=== PATIENT | male | born 1970 | race Caucasian/White ===

== ENCOUNTER 2018-12-20 15:54 | Emergency (ER) | payer BC, OTHER ==
[2018-12-20 16:52] LABS: Urine Blood TRACE (NEG); Urine Glucose NEGATIVE (NEG); Urine Protein TRACE (NEG); Urine pH 5.5 (5.0-7.0)
[2018-12-20 16:59] LABS: Absolute Lymphocytes (CBC) 0.8 K/uL (0.7-4.9); Basophils % 0.1 % (0-1.3); Eosinophils % 1.1 % (0-4.4); Hematocrit 47.3 % (39.6-49.0); Lymphocytes % 10.9 % (15.3-44.8); MPV 7.5 fL (7.6-11.3); Monocytes % 6.3 % (3.3-12.3); RBC Red Blood Cell Count 4.95 M/uL (4.33-5.43)
[2018-12-20 17:06] LABS: Albumin 3.9 g/dL (3.4-5.0); Bilirubin Direct 0.2 mg/dL (0-0.2); Bilirubin Total 0.8 mg/dL (0.2-1.0); Potassium 3.6 mmol/L (3.5-5.1)
[2018-12-20] MEDS ORDERED: NA CHLORIDE 0.9% 1,000 ML ONE (17:11)
--- NOTE | 2018-12-20 17:45 | RAD REPORT ---
EXAM DESCRIPTION: CT - Abdomen Pelvis Wo Contrast - 12/20/2018 5:16 pm CLINICAL HISTORY: Abdominal pain vomiting COMPARISON: None TECHNIQUE: Computed axial tomography of the abdomen and pelvis was obtained. IV and oral contrast we re not requested. All CT scans are performed using dose optimization technique as appropriate and may include automated exposure control or mA/KV adjustment according to patient size. FINDINGS: The evaluation of solid organs, vessels and bowel is limited secondary to the lack of con trast administration. The liver, spleen, pancreas, adrenals and right kidney appear grossly normal. A 2 millimeter nonobstructing left renal calculus The appendix is normal. There is no evidence of diverticulitis. Small inguinal hernias contain fat. Small umbilical hernia IMPRESSION: Small nonobstructing left renal calculus
--- NOTE | 2018-12-20 17:58 | EDPHYS ---
Physician Documentation [facility] Name: Kurtis Sanchez Age: 48 yrs Sex: Male : 1970 Arrival Date: 12/20/2018 Time: 15:56 Bed 23 Private MD: ED Physician Dusty Castro Historical: - Allergies: 12/20 16:03 No Known Allergies; hb - Home Meds: 16:03 multivitamin with minerals oral tab [Active]; hb - PMHx: 16:03 None; hb - PSHx: 16:03 Leg - Right; hb - Immunization history:: Adult Immunizations up to date. - Social history:: Smoking status: Patient/guardian denies using tobacco. - Ebola Screening: : No symptoms or risks identified at this time. Vital Signs: 16:02 BP 167 / 93; Pulse 82; Resp 16; Temp 98.4; Pulse Ox 100% on R/A; Weight 113.4 kg; hb Height 5 ft. 8 in. (172.72 cm); Pain 8/10; 17:44 BP 137 / 94; Pulse 63; Resp 18; Pulse Ox 97% on R/A; mg2 16:02 Body Mass Index 38.01 (113.40 kg, 172.72 cm) hb MDM: 16:36 Patient medically screened. gs 12/20 16:19 Order name: Basic Metabolic Panel; Complete Time: 17:14 mg2 12/20 16:19 Order name: CBC with Diff; Complete Time: 17:14 mg2 18 16:19 Order name: Creatinine for Radiology; Complete Time: 17:14 mg2 12/20 16:19 Order name: Hepatic Function; Complete Time: 17:14 mg2 18 16:19 Order name: Lipase; Complete Time: 17:14 mg2 12/20 16:31 Order name: Urine Dipstick--Ancillary (enter results); Complete Time: 17:14 eb 12/20 16:19 Order name: IV Saline Lock; Complete Time: 16:31 mg2 12/20 16:19 Order name: Labs collected and sent; Complete Time: 16:31 mg2 12/20 16:32 Order name: Urine Dipstick-Ancillary (obtain specimen); Complete Time: 16:32 mg2 12/20 16:53 Order name: CT Abd/Pelvis - Without Contrast; Complete Time: 17:53 gs Administered Medications: 16:58 Drug: NS 0.9% 1000 ml Route: IV; Rate: 1 bolus; Site: right antecubital; mg2 17:58 Follow up: Response: No adverse reaction; IV Status: Completed infusion; IV Intake: mg2 1000ml Disposition: 12/20/18 17:57 Discharged to Home. Impression: Lower abdominal pain, unspecified, Diarrhea, unspecified. - Condition is Stable. - Discharge Instructions: Abdominal Pain, Adult, Diarrhea, Adult, Nausea and Vomiting, Adult. - Prescriptions for Zofran 4 mg Oral Tablet - take 1 tablet by ORAL route every 12 hours As needed; 6 tablet. - Work release form, Medication Reconciliation Form, Thank You Letter, Antibiotic Education, Prescription Opioid Use form. - Follow up: Private Physician; When: 2 - 3 days; Reason: Re-evaluation by your physician. Follow up: Christos Gasca MD; When: 2 - 3 days; Reason: Re-evaluation by your physician. Signatures: Dispatcher [employer] EDMO Nakia Loco RN RN Dusty Castro MD MD Octavio Garcia RN RN mg2 Corrections: (The following items were deleted from the chart) 18:51 17:57 12/20/2018 17:57 Discharged to Home. Impression: Lower abdominal pain, mg2 unspecified; Diarrhea, unspecified. Condition is Stable. Forms are Medication Reconciliation Form, Thank You Letter, Antibiotic Education, Prescription Opioid Use. Follow up: Private Physician; When: 2 - 3 days; Reason: Re-evaluation by your physician. Follow up: Christos Gasca; When: 2 - 3 days; Reason: Re-evaluation by your physician.
--- NOTE | 2018-12-20 17:58 | ER ---
Nurse's Notes [facility] Name: Kurtis Sanchez Age: 48 yrs Sex: Male : 1970 Arrival Date: 12/20/2018 Time: 15:56 Bed 23 Private MD: Diagnosis: Lower abdominal pain, unspecified;Diarrhea, unspecified Presentation: 12/20 16:01 Presenting complaint: Upper abdominal pain x 2 weeks, N/V and dizziness 2 days. Denies hb fever. Transition of care: patient was not received from another setting of care. Onset of symptoms is unknown. Risk Assessment: Do you want to hurt yourself or someone else? Patient reports no desire to harm self or others. Care prior to arrival: None. 16:01 Method Of Arrival: Ambulatory hb 16:01 Acuity: JOHNNY 3 hb 16:35 Initial Sepsis Screen: Does the patient meet any 2 criteria? No. Patient's initial mg2 sepsis screen is negative. Does the patient have a suspected source of infection? No. Patient's initial sepsis screen is negative. Historical: - Allergies: 16:03 No Known Allergies; hb - Home Meds: 16:03 multivitamin with minerals oral tab [Active]; hb - PMHx: 16:03 None; hb - PSHx: 16:03 Leg - Right; hb - Immunization history:: Adult Immunizations up to date. - Social history:: Smoking status: Patient/guardian denies using tobacco. - Ebola Screening: : No symptoms or risks identified at this time. Screenin:35 Abuse screen: Denies threats or abuse. Denies injuries from another. Nutritional mg2 screening: No deficits noted. Tuberculosis screening: No symptoms or risk factors identified. Fall Risk IV access (20 points). Assessment: 16:33 General: Appears in no apparent distress. comfortable, Behavior is calm, cooperative. mg2 Pain: Complains of pain in abdomen Pain does not radiate. Pain currently is 7 out of 10 on a pain scale. Quality of pain is described as aching, Pain began gradually, Is intermittent. Neuro: Level of Consciousness is awake, alert, obeys commands, Oriented to person, place, time, situation. Cardiovascular: Capillary refill < 3 seconds Patient's skin is warm and dry. Respiratory: Airway is patent Respiratory effort is even, unlabored, Respiratory pattern is regular, symmetrical. GI: Bowel sounds present X 4 quads. Abd is soft Abdomen is tender to palpation. GI: Reports lower abdominal pain, upper abdominal pain, vomiting. : Urine is see urine dip. EENT: No signs and/or symptoms were reported regarding the EENT system. Derm: Skin is intact, is healthy with good turgor, Skin is pink, warm \T\ dry. normal. Musculoskeletal: Circulation, motion, and sensation intact. Capillary refill < 3 seconds. 18:23 Reassessment: patient up for discharge after completing iv fluid. mg2 Vital Signs: 16:02 BP 167 / 93; Pulse 82; Resp 16; Temp 98.4; Pulse Ox 100% on R/A; Weight 113.4 kg; hb Height 5 ft. 8 in. (172.72 cm); Pain 8/10; 17:44 BP 137 / 94; Pulse 63; Resp 18; Pulse Ox 97% on R/A; mg2 16:02 Body Mass Index 38.01 (113.40 kg, 172.72 cm) hb ED Course: 15:56 Patient arrived in ED. as 16:02 Triage completed. hb 16:02 Arm band placed on. hb 16:13 Octavio Garcia, RN is Primary Nurse. mg2 16:17 Dusty Castro MD is Attending Physician. gs 16:35 Patient has correct armband on for positive identification. Pulse ox on. NIBP on. Door mg2 closed. Warm blanket given. 16:35 No provider procedures requiring assistance completed. mg2 16:38 Initial lab(s) drawn, by ia, sent to lab. Inserted saline lock: 20 gauge in right lt1 antecubital area, using aseptic technique. 17:18 CT Abd/Pelvis - Without Contrast In Process Unspecified. EDMS 17:57 Christos Gasca MD is Referral Physician. gs 18:50 IV discontinued, intact, bleeding controlled, No redness/swelling at site. Pressure mg2 dressing applied. Administered Medications: 16:58 Drug: NS 0.9% 1000 ml Route: IV; Rate: 1 bolus; Site: right antecubital; mg2 17:58 Follow up: Response: No adverse reaction; IV Status: Completed infusion; IV Intake: mg2 1000ml Intake: 17:58 IV: 1000ml; Total: 1000ml. mg2 Outcome: 17:57 Discharge ordered by . gs 18:50 Discharged to home ambulatory. mg2 18:50 Condition: stable 18:50 Discharge instructions given to patient, Instructed on discharge instructions, follow up and referral plans. medication usage, Demonstrated understanding of instructions, follow-up care, medications, Prescriptions given X 1. 18:51 Patient left the ED. mg2 Signatures: Dispatcher [employer] Brittaney Sy Heather, RN RN Dusty Castro MD MD Octavio Garcia RN RN [address], [facility]
[2018-12-20 19:02] VITALS: TEMP 98.4
[2018-12-20 19:03] VITALS: BP 137/94; O2SAT 97
== END 2018-12-20 18:51 | disposition home or self-care (01) ==
LOC: ER 15:54
DX: R19.7 Diarrhea, unspecified (principal); R10.30 Lower abdominal pain, unspecified; N20.0 Calculus of kidney
CPT/HCPCS: 36415; 74176; 80048; 80076; 81003; 83690; 85025; 96360; 99284; J7030